=== PATIENT | female | born 2005 | race Caucasian/White ===

== ENCOUNTER 2025-06-11 03:10 | Emergency (ER) | payer MEDICAID, SELFPAY ==
[2025-06-11 03:25] VITALS: BP 126/82; PULSE 130; TEMP 38.9; O2SAT 99; BMI 22.9
--- NOTE | 2025-06-11 03:39 | ED_ITS ---
HPI HPI - General Adult General Chief complaint: Upper Respiratory Infection Stated complaint: SORE THROAT, FEVER, BILATERAL EAR PAIN Time Seen by Provider: 06/11/25 03:20 Source: patient Mode of arrival: walk-in History of Present Illness HPI narrative: Patient is a 20-year-old healthy female with no chronic medical conditions presenting to the emergency department for concerns of a fever and sore throat. Patient states that her symptoms started approximately 24 hours ago. She does complain of pain when she swallows, sore throat, and pain in the bilateral ears. She states she is febrile, and had a fever at home of 102 ?F. She denies any cough, congestion, or shortness of breath. No chest pain. No abdominal pain, nausea, or vomiting. She denies being as she is on Depo-Provera. Related Data Home Medications ?Medication ?Instructions ?Recorded ?Confirmed medroxyprogesterone 150 mg/mL 300 mg IM QWEEK 06/11/25 06/11/25 intramuscular suspension (Depo-Provera) Previous Rx's ?Medication ?Instructions ?Recorded azithromycin 250 mg tablet 250 mg PO DAILY 4 days #4 t abs 06/11/25 (Zithromax) Allergies Allergy/AdvReac Type Severity Reaction Status Date / Time No Known Drug Allergies Allergy Verified 06/11/25 03:24 Review of Systems ROS Status of ROS 10 or more systems reviewed and unremark able except as noted in history and below PFSH PFSH Social History Little interest or pleasure in doing things: not at all Feeling down, depressed, or hopeless: not at all Exam Narrative Exam Narrative: CONSTITUTIONAL: Appears ill but nontoxic. Answering questions and following commands appropriately SKIN: Was warm and dry. EYES: Sclerae white. No conjunctival exudates. EARS, NOSE, THROAT: Bilateral tonsillar enlargement with mild exudates. No evidence of peritonsillar abscess. Uvula midline. No trismus. No lymphadenopathy. No neck swelling. Speaking with a normal voice. No tenderness of the floor of the mouth. Bilateral TMs are pearly ogden without bulging or erythema. No mastoid tenderness. RESPIRATORY: Clear to auscultation bilaterally, no wheezes, crackles, or stridor, no use of accessory muscles CARDIOVASCULAR: Tachycardic rate and regular rhythm. There is no S3, S4, murmur, rub. GASTROINTESTINAL: Abdomen is nondistended. MUSCULOSKELETAL: No peripheral edema. NEUROLOGIC: Patient is awake and alert. Facies were symmetrical. Constitutional Vital Signs, click to edit/add: Last Vital Signs Temp 100.2 F 06/11/25 04:32 Pulse 108 H 06/11/25 04:32 Resp 20 06/11/25 04:32 BP 126/82 06/11/25 03:25 Pulse Ox 98 06/11/25 04:32 O2 Del Method Room Air 06/11/25 04:32 Course Vital Signs Vital signs: Vital Signs Temperature 102.1 F H 06/11/25 03:25 Pulse Rate 130 H 06/11/25 03:25 Respiratory Rate 20 06/11/25 03:25 Blood Pressure 126/82 06/11/25 03:25 Pulse Oximetry 99 06/11/25 03:25 Oxygen Delivery Method Room Air 06/11/25 03:25 Temperature 100.2 F 06/11/25 04:32 Pulse Rate 108 H 06/11/25 04:32 Respiratory Rate 20 06/11/25 04:32 Blood Pressure 126/82 06/11/25 03:25 Pulse Oximetry 98 06/11/25 04:32 Oxygen Delivery Method Room Air 06/11/25 04:32 Medical Decision Making MDM Narrative Medical decision making narrative: Patient is a 20-year-old female, healthy with no medical conditions, presenting to the emergency department for 24-hour history of sore throat and fever. Vital signs on arrival are significant for tachycardia and a fever 102.1 ?F. Vitals were otherwise within normal limits. She is saturating at 99% room air no respiratory distress. Examination was consistent with pharyngitis, with bilateral symmetric tonsil enlargement with mild exudates. Differential diagnosis includes streptococcal pharyngitis, viral pharyngitis, mononucleosis, URI. She has no hypoxia, shortness of breath, or cough - making pneumonia of low likelihood. She has no trismus or evidence of peritonsillar abscess on exam. Though she appears ill, she looks nontoxic and well-hydrated. Patient was treated symptomatically with oral Decadron and Motrin. She was given a dose of 500 mg azithromycin while here in the ED. Rapid strep test was negative. Monospot test negative On reevaluation, patient states she feels improved. Repeat vital signs demonstrated improvement of her tachycardia, now only 108 bpm. Her fever normalized and is now 100.2 Fahrenheit. I do believe the patient is stable for discharge at this time. They were instructed to follow up with her PCP should her symptoms persist. Return precautions were given including any new or worsening symptoms. They were given a prescription for azithromycin 250 mg daily x 4 days. Patient understands and agrees to the plan. Lab Data Lab results reviewed: Yes I reviewed the patient's lab results Labs: Lab Results 06/11/25 06/11/25 Range/Units 03:27 04:10 Monoscreen Negative (NEGATIVE) Streptococcus Screen Negative Discharge Plan Discharge Chief Complaint: Upper Respiratory Infection Clinical Impression: Pharyngitis Qualifiers: Pharyngitis/tonsillitis etiology: other specified organisms Qualified Code(s): J02.8 - Acute pharyngitis due to other specified organisms Patient Disposition: Home, Self-Care Condition: Good Prescriptions / Home Meds: New azithromycin [Zithromax] 250 mg tablet 250 mg PO DAILY 4 Days Qty: 4 0RF Rx Instructions: start on day 2 of therapy No Action medroxyprogesterone [Depo-Provera] 150 mg/mL suspension 300 mg IM QWEEK Print Language: Danish Instructions: Pharyngitis (ED) Referrals: Physician,Non-Staff, MD [Primary Care Provider] - 1 week
[2025-06-11] MEDS: IBUPROFEN 600 MG TABLET PO (03:51)
[2025-06-11] MEDS: DEXAMETHASONE 4 MG TABLET 10 MG PO (03:55)
[2025-06-11] MEDS: AZITHROMYCIN 250 MG TABLET 500 MG PO (03:56)
[2025-06-11 04:31] LABS: Mono Screen NEGATIVE (NEGATIVE)
[2025-06-11 04:32] VITALS: PULSE 108; TEMP 37.9; O2SAT 98
== END 2025-06-11 05:06 | disposition home or self-care (01) ==
PROVIDERS: Emergency Provider Student in an Organized Health Care Education/Training Program
DX: J02.8 Acute pharyngitis due to other specified organisms (principal); R50.9 Fever, unspecified; H92.03 Otalgia, bilateral; R00.0 Tachycardia, unspecified
CPT/HCPCS: 86308; 87070; 87880; 99284; J8540